=== PATIENT | male | born 1985 | race Asian ===

== ENCOUNTER 2018-08-16 01:45 | Emergency (ER) | payer SELFPAY ==
[~2018-08-16] VITALS: Ht 172.7 cm; Wt 79.4 kg
[2018-08-16 01:51] VITALS: Ht 172.7 cm; Wt 79.4 kg
[2018-08-16 03:04] VITALS: BP 128/68
== END 2018-08-16 03:04 | disposition home or self-care (01) ==
LOC: ED 01:45
DX: S01.81XA Laceration without foreign body of other part of head, initial encounter (principal); W01.0XXA Fall on same level from slipping, tripping and stumbling without subsequent striking against object, initial encounter; Y93.89 Activity, other specified; Y92.89 Other specified places as the place of occurrence of the external cause; Y99.8 Other external cause status
CPT/HCPCS: 90715; J2001

== ENCOUNTER 2018-08-22 17:31 | Emergency (ER) | payer SELFPAY ==
[~2018-08-22] VITALS: Ht 177.8 cm; Wt 81.2 kg
[2018-08-22 17:52] VITALS: Ht 177.8 cm; Wt 81.2 kg
[2018-08-22 20:20] VITALS: BP 141/85
== END 2018-08-22 20:20 | disposition home or self-care (01) ==
LOC: ED 17:31
DX: S01.112D Laceration without foreign body of left eyelid and periocular area, subsequent encounter (principal); R03.0 Elevated blood-pressure reading, without diagnosis of hypertension; F17.210 Nicotine dependence, cigarettes, uncomplicated; X58.XXXD Exposure to other specified factors, subsequent encounter